=== PATIENT | male | born 1930 | race Caucasian/White ===

== ENCOUNTER 2017-04-16 09:31 | Emergency (ER) | payer OTHER ==
[~2017-04-16] VITALS: Ht 177.8 cm; Wt 72.6 kg
[2017-04-16 09:37] VITALS: Ht 177.8 cm; Wt 72.6 kg
[2017-04-16] MEDS ORDERED: HYDROCHLOROTH12.5 M2 PO (10:28)
[2017-04-16] MEDS ORDERED: ZESTRIL10 MG PO (10:28)
[2017-04-16] MEDS ORDERED: FINASTERIDE5 M1 PO (10:29)
[2017-04-16] MEDS ORDERED: SIMVASTATIN10 M1 PO (10:29)
[2017-04-16] MEDS ORDERED: SAW PALMETTO80 MG (10:35)
[2017-04-16] MEDS ORDERED: LECITHIN SOYA (10:36)
[2017-04-16] MEDS ORDERED: GARLIC1 EACH PO (10:36)
[2017-04-16 10:44] LABS: CALCIUM 8.7 mg/dL (8.5-10.1); CARBON DIOXIDE 23.5 mmol/L (21-32); CHLORIDE SERUM 103 mmol/L (98-107); CREATININE SERUM 1.3 mg/dL (0.7-1.3); GLUCOSE SERUM 109 mg/dL (74-106); POTASSIUM SERUM 4.3 mmol/L (3.5-5.1); SODIUM SERUM 135 mmol/L (136-145)
[2017-04-16 10:50] LABS: ALKALINE PHOSPHATASE 82 U/L (46-116); ALT/SGPT 24 U/L (16-63); AST/SGOT 20 U/L (15-37); BILIRUBIN TOTAL 0.3 mg/dL (0.20-1.00); TOTAL PROTEIN, SERUM 6.5 g/dL (6.4-8.2)
[2017-04-16 10:53] LABS: BASOPHIL % 0.2 % (0-2); PLATELET COUNT 227 x10^3mcL (130-400); RED CELL DISTRIBUTION WIDTH 14.4 % (11.5-14.5)
[2017-04-16 12:16] VITALS: BP 143/67
== END 2017-04-16 12:16 | disposition home or self-care (01) ==
LOC: ED 09:31
PROVIDERS: Emergency Medicine
DX: R55 Syncope and collapse (principal); I10 Essential (primary) hypertension; E78.00 Pure hypercholesterolemia, unspecified
CPT/HCPCS: G0480; J7030